=== PATIENT | female | born 1960 | race Caucasian/White ===

== ENCOUNTER 2023-05-20 08:30 | Day surgery (SDC) | payer OTHER ==
[~2023-05-20 08:30] MED LIST: Metoclopramide 10 MG/2 ML SDV IV PRN
[2023-05-20] MEDS: Sodium Chloride 0.9% 1,000 ML IV SCH (08:57)
[2023-05-20] MEDS ORDERED: Propofol 1,000 MG/100 ML SDV ONE (10:00)
[2023-05-20 10:20] VITALS: BP 107/84; PULSE 65
== END 2023-05-20 11:47 | disposition home or self-care (01) ==
LOC: LB.SDS 08:30
PROVIDERS: ATTEND Surgery
DX: Z12.11 Encounter for screening for malignant neoplasm of colon (principal); E03.9 Hypothyroidism, unspecified; N95.2 Postmenopausal atrophic vaginitis; Z79.890 Hormone replacement therapy; Z79.899 Other long term (current) drug therapy
CPT/HCPCS: J2704; J7030

== ENCOUNTER 2025-01-04 20:01 | Emergency (ER) | payer BC ==
[2025-01-04] MEDS ORDERED: Sodium Chloride 0.9% 10 ML Syringe FLUSH PRN (20:04)
[2025-01-04] MEDS: Morphine 4 MG/ML VIAL IVPUSH ONE (20:42)
[2025-01-04 20:44] LABS: BASOPHILS ABSOLUTE AUTO 0.04 K/uL (0.02-0.10); BASOPHILS PERCENT AUTO 0.5 % (0.0-0.5); EOSINOPHILS ABSOLUTE AUTO 0.11 K/uL (0.04-0.40); EOSINOPHILS PERCENT AUTO 1.4 % (1.0-5.0); HEMATOCRIT 39.1 % (37.0-47.0); HEMOGLOBIN 12.9 g/dL (11.5-16.5); LYMPHOCYTES ABSOLUTE AUTO 1.75 K/uL (1.50-4.00); LYMPHOCYTES PERCENT AUTO 21.9 % (20.0-40.0); MEAN CORPUSCULAR HEMOGLOBIN 29.6 pg (27.0-32.0); MEAN CORPUSCULAR VOLUME 90 fL (76-96); MEAN PLATELET VOLUME 9.4 fL (6.0-10.0); MONOCYTES ABSOLUTE AUTO 0.64 K/uL (0.20-0.80); NEUTROPHILS ABSOLUTE AUTO 5.45 K/uL (2.00-7.50); NEUTROPHILS PERCENT AUTO 68.2 % (45.0-70.0); PLATELET COUNT,PLT 252 K/uL (150-500); RED BLOOD CELL COUNT 4.36 M/uL (3.80-5.80); RED CELL DISTRIBUTION WIDTH 12.4 % (11.0-16.0)
[2025-01-04] MEDS: Ondansetron 4 MG/2 ML SDV IVPUSH ONE (20:44)
[2025-01-04] MEDS: Sodium Chloride 0.9% 1,000 ML IV SCH (20:50)
[2025-01-04 21:09] LABS: A/G RATIO 0.9 (0.8-2.0); ALBUMIN 3.6 g/dL (3.4-5.0); ANION GAP 12.6 mmol/L (5.0-15.0); BILIRUBIN TOTAL 0.6 mg/dL (0.0-1.0); BUN/CREATININE RATIO 11.2 (6-25); C-REACTIVE PROTEIN 25.8 mg/L (<5.0); CALCIUM 8.9 mg/dL (8.5-10.1); CARBON DIOXIDE,CO2 26.1 mmol/L (21.0-32.0); CREATININE 0.89 mg/dL (0.55-1.02); EST CRCL DRUG DOSING (CG) 56.59 mL/min; POTASSIUM,K 3.7 mmol/L (3.5-5.1); PROTEIN TOTAL,TP 7.4 g/dL (6.4-8.2)
[2025-01-04] MEDS: Sodium Chloride 0.9% 50 ML SDV FLUSH ONE (21:24)
[2025-01-04] MEDS: Iopamidol 612 MG/ML 100 ML Bottle IV SCH (21:24)
[2025-01-04] MEDS: HYDROmorphone 2 MG/ML Syringe IVPUSH ONE ×3 (21:32→23:55)
[2025-01-04 21:47] LABS: APPEARANCE,URINE CLEAR (CLEAR); BILIRUBIN,URINE NEGATIVE (NEGATIVE); COLOR,URINE YELLOW; GLUCOSE,URINE NEGATIVE (NEGATIVE); KETONES,URINE TRACE mg/dL (NEGATIVE); PH,URINE 6.5 (5.0-8.0); PROTEIN,URINE NEGATIVE (NEGATIVE)
[2025-01-04 21:48] LABS: LEUKOCYTE ESTERASE,URINE TRACE (NEGATIVE); NITRITE,URINE NEGATIVE (NEGATIVE); OCCULT BLOOD,URINE TRACE-INTACT (NEGATIVE); UROBILINOGEN,URINE 0.2 E.U./dL (0.2-1.0)
[2025-01-04 21:49] LABS: BACTERIA,URINE RARE /HPF; SQUAMOUS EPITHELIAL CELLS,UR FEW /HPF; WBC,URINE 20-30 /HPF
[2025-01-04] MEDS: Piperacillin/Tazobactam 4.5 GM in Sodium Chloride 0.9% 100 ML IV ONE (22:05)
[2025-01-05] MEDS: Ondansetron 4 MG/2 ML SDV IVPUSH ONE (00:05)
[2025-01-05] MEDS: Ondansetron 4 MG/2 ML SDV ONE (00:12)
[2025-01-05 00:34] VITALS: BP 99/64; PULSE 89
== END 2025-01-05 00:08 ==
LOC: LB.ED 20:01 → SUPCPDRO 20:01 → LB.ED 01-05 00:08
DX: K35.30 Acute appendicitis with localized peritonitis, without perforation or gangrene (principal); E03.9 Hypothyroidism, unspecified; Z79.890 Hormone replacement therapy; Z79.899 Other long term (current) drug therapy
CPT/HCPCS: 36415; 74177; 80053; 81001; 83605; 85025; 86140; 87086; 96361; 96365; 96375; 96376; 99285; J1171; J2270; J2405; J2543; J3490; J7030; Q9967